=== PATIENT | female | born 1935 | race Caucasian/White ===

== ENCOUNTER 2019-01-29 13:49 | Emergency (ER) | payer MEDICARE, SELFPAY ==
[2019-01-29 13:51] VITALS: BP 163/89; PULSE 43; RESP 17; TEMP 36.4; O2SAT 99; BMI 18.1
--- NOTE | 2019-01-29 14:05 | CT_ITS ---
STUDY: CT BRAIN WITHOUT CONTRAST REASON FOR EXAM: Female, 83 years old. Intermittent left earache. RADIATION DOSAGE (If Supplied By Facility): CTDIvol = ( 60.81 ) mGy, DLP = ( 998.67 ) mGycm TECHNIQUE: Transaxial CT imaging of the brain was performed without administration of intravenous contrast material. Individualized dose optimization techniques were used for this CT. COMPARISON: No relevant priors. FINDINGS: Normal soft tissue structures. Normal calvarium. There is mild cerebral atrophy with widening of the extra-axial spaces and ventricular dilatation. There are areas of decreased attenuation within the white matter tracts of the supratentorial brain, consistent with microvascular disease changes. Normal basal ganglia and thalami. Normal brainstem. There is mild cerebellar atrophy. There is no intracranial hemorrhage. There are no findings of an acute ischemic infarction. Atherosclerotic plaques of the cavernous portions of the internal carotid arteries bilaterally. Normal visualized paranasal sinuses. CT/Brain/Head without Contrast IMPRESSION: Chronic involutional changes of the brain. Electronically Signed: Abraham March, at 14:55 EDT , Service support ,
--- NOTE | 2019-01-29 15:10 | ED.VISSUMM ---
- ER Visit Summary Date of Service: 01/29/19 Chief Complaint: Ear pain History of Present Illness: The patient is a 83 F left ear pain for 2 to 3 days. She has had it on and off for about a year. No headache no fever chills no cough congestion. Denies any problems swallowing. There is no facial pain burning sensation or neuropathic pain. Physical Examination: On physical exam she has a normal TM she has some tenderness over the auricle. There is no mastoid tenderness there is no TMJ tenderness there is no facial tenderness she has a normal bite she has a normal posterior oropharynx she has a no C-spine tenderness she has a normal exam. Emergency Department Course and Treatment: CT is unremarkable, I will refer to ENT. Discharge stable condition Impression: [Otalgia] This note was generated with [employer] dictation software. It may contain incorrect words, spelling, and punctuation that were not noted in review of the chart prior to signing ED Disposition - Plan for ED Patient: Disposition: Home or Assisted Living Referrals: Joel Escobedo MD [STAFF PHYSICIAN] - 3-5 Days Additional Instructions: Follow-up with ear nose and throat, your work-up was normal in the ED you had a normal CAT scan.
--- NOTE | 2019-01-29 15:15 | ED.DCSUM_ITS ---
- ER Visit Summary Date of Service: 01/29/19 Chief Complaint: Ear pain History of Present Illness: The patient is a 83 F left ear pain for 2 to 3 days. She has had it on and off for about a year. No headache no fever chills no cough congestion. Denies any problems swallowing. There is no facial pain bur scottie sensation or neuropathic pain. Physical Examination: On physical exam she has a normal TM she has some tenderness over the auricle. There is no mastoid tenderness there is no TMJ tenderness there is no facial tenderness she has a normal bite she has a normal posterior oropharynx she has a no C-spine tenderness she has a normal exam. Emergency Department Course and Treatment: CT is unremarkable, I will refer to ENT. Discharge stable condition Impression: [Otalgia] This note was generated with [employer] dictation software. It may contain incorrect words, spelling, and punctuation that were not noted in review of the chart prior to signing ED Disposition - Plan for ED Patient: Disposition: Home or Assisted Living Referrals: Joel Escobedo MD [STAFF PHYSICIAN] - 3-5 Days Additional Instructions: Follow-up with ear nose and throat, your work-up was normal in the ED you had a normal CAT scan.
[2019-01-29 15:22] VITALS: BP 155/80; PULSE 60; RESP 14; O2SAT 98
== END 2019-01-29 15:23 | disposition home or self-care (01) ==
PROVIDERS: Emergency Provider Emergency Medicine; Family Provider Family Medicine; PCP Family Medicine
DX: H92.02 Otalgia, left ear (principal); K21.9 Gastro-esophageal reflux disease without esophagitis
CPT/HCPCS: 70450; 99282

== ENCOUNTER 2021-09-09 09:33 | Emergency (ER) | payer MEDICARE, SELFPAY ==
[2021-09-09 09:34] VITALS: BP 129/88; PULSE 98; RESP 16; TEMP 36.6; O2SAT 99; BMI 16.5
--- NOTE | 2021-09-09 10:06 | RAD_ITS ---
HISTORY: Injury/Pain. TECHNIQUE: XR Knee 1 or 2 Views. # of images incl. paperwork: 2. COMPARISON: None. FINDINGS: BONES: No acute fracture identified. Chronic fragment at the medial femoral condyle from old avulsion injury. Generalized osteopenia. JOINTS: No dislocation. Degenerative changes with chondrocalcinosis. Mild joint effusion. RAD/Knee 1 or 2 Views IMPRESSION: No acute fracture or dislocation identified. Degenerative changes in the left knee with mild joint effusion. at 1038 Reported and signed by: Fanta Miller MD Electronically Signed: Fanta Miller MD at 10:37 EST Tel , Service support ,
--- NOTE | 2021-09-09 10:06 | RAD_ITS ---
HISTORY: Injury/Pain. TECHNIQUE: XR Tibia/Fibula 2 Views. # of images incl. paperwork: 3. COMPARISON: None. FINDINGS: BONES: No acute fracture identified. Generalized osteopenia. JOINTS: No dislocation. Degenerative changes. RAD/Tibia & Fibula 2 Views IMPRESSION: No acute fracture or dislocation identified in the left leg. at 1039 Reported and signed by: Fanta Miller MD Electronically Signed: Fanta Miller MD at 10:38 EST Tel , Service support ,
--- NOTE | 2021-09-09 10:06 | CT_ITS ---
STUDY: CT BRAIN WITHOUT CONTRAST REASON FOR EXAM: Female, 86 years old. Injury/ Pain RADIATION DOSAGE (If Supplied By Facility): CTDIvol = ( 44.99 ) mGy, DLP = ( 745.49 ) mGycm TECHNIQUE: Transaxial CT imaging of the brain was performed without administration of intravenous contrast material. Individualized dose optimization techniques were used for this CT. COMPARISON: January 29, 2019 FINDINGS: Normal soft tissue structures. Normal calvarium. There is moderate cerebral atrophy with widening of the extra-axial spaces and ventricular dilatation. There are areas of decreased attenuation within the white matter tracts of the supratentorial brain, consistent with microvascular disease changes. Normal basal ganglia and thalami. Normal brainstem. Normal cerebellum. There is no intracranial hemorrhage. There are no findings of an acute ischemic infarction. There is moderate mucosal thickening of the paranasal sinuses. CT/Brain/Head without Contrast IMPRESSION: Chronic involutional changes of the brain. Electronically Signed: Devante Kerr MD at 10:51 EST , Service support ,
--- NOTE | 2021-09-09 10:16 | EDS_ITS ---
HPI HPI - Fall History of Present Illness Chief Complaint: Fall Informant: patient Narrative Narrative: home with her daughter for left knee pain. O 2 days ago patient was walking in her driveway when she tripped and fell. She landed on her left knee and also hit her face.n ,Patient is an 86-year-old male presenting from She denies any loss of consciousness. She is not any blood thinners. She is here because he is having worsening knee pain is having a hard time ambulating. She does feel that she has to drag her leg because it hurts to put weight on it. She has still been able to ambulate her house. She usually does not use any assistive devices. She takes tramadol once a day for her chronic back pain and otherwise takes [id number] Tylenol sparingly. She does not feel like the Tylenol has been helping with her knee pain. She did scrape her nose and upper lip when she fell. She denies loss of conscious. She is unsure last tetanus was. Patient has been having mild intermittent headaches. No other complaints or concerns at this time. Tetanus Immunization: Unknown [facility] Medical History Arthralgia of both lower legs Bilateral leg edema CKD (chronic kidney disease) stage 3, GFR 30-59 ml/min Cognitive and behavioral changes GERD without esophagitis Hyperlipidemia Hypertension L-S radiculopathy Mitral valve disorder RCT (rotator cuff tear) Rosacea TIA (transient ischemic attack) Home Medications acetaminophen [Tylenol] 650 mg PO Q6H PRN 09/09/21 [History Last Taken Unknown] amlodipine 2.5 mg PO DAILY 09/09/21 [History Last Taken Unknown] hydrocodone-acetaminophen 1 tab PO Q6H PRN 3 Days #12 tab 09/09/21 [Rx Last Taken Unknown] metoprolol succinate 50 mg PO BID 09/09/21 [History Last Taken Unknown] simvastatin 10 mg PO QHS 09/09/21 [History Last Taken Unknown] tramadol 50 mg PO DAILY 09/09/21 [History Last Taken Unknown] tretinoin (emollient) 1 applic TOPICAL DAILY 09/09/21 [History Last Taken Unknown] triamterene-hydrochlorothiazid 1 tab PO DAILY 09/09/21 [History Last Taken Unknown] Allergy/AdvReac Type Severity Reaction Status Date / Time amoxicillin [From Augmentin] Allergy Hives Verified 09/09/21 09:35 clavulanic acid Allergy Hives Verified 09/09/21 09:35 [From Augmentin] Penicillins Allergy Hives Verified 09/09/21 09:35 Surgical History History of appendectomy History of hysterectomy Social History Smoking Status: Never smoker ROS ROS ED Constitutional Constitutional ED: Denies chills or fever(s) Eyes Eyes: Denies blurry vision or change in vision ENT ENT ED: Denies ear pain, rhinorrhea or sore throat Cardiovascular Cardiovascular: Denies chest pain Respiratory/Chest Respiratory/Chest: Denies dyspnea Gastrointestinal Gastrointestinal: Denies abdominal pain or vomiting Musculoskeletal Musculoskeletal: Reports other Details: Left knee pain Integumentary Reports Abrasions Neurologic Neurologic: Reports headache(s); Denies paresthesias or weakness Psychiatric Psychiatric: Denies depression EXAM Physical Exam Const Vital Signs: 09/09/21 09:34 09/09/21 13:10 Temperature 98 F Temperature Source Temporal Pulse Rate 98 Respiratory Rate 16 16 Blood Pressure 129/88 H Blood Pressure Mean 101 Pulse Ox 99 Oxygen Delivery Method Room Air Positive well nourished and well developed General Appearance ED: well developed HEENT Reports normocephalic, TM's clear and TM's normal bilaterally HEENT Narrative: No cephalhematoma appreciated. No hemotympanum. No signs of basilar skull fracture. Normal occlusion. No signs of epistaxis or septal hematoma. Patient does have abrasions to her philtrum and nose that appear to be healing. They are covered up with make-up at this time. Tympanic Membrane ED: Yes TM's clear Eyes PERRL and EOMs intact bilaterally Neck full ROM and supple Neck Narrative: No midline tenderness Chest Wall inspection of chest normal Resp normal respiratory effort and clear to auscultation bilaterally Cardio regular rate, regular rhythm and no murmurs Cardio Narrative: 2+ bilateral DP pulses GI non-tender and non-distended Palpation: soft Back/Spine no CVA tenderness Back/Spine Narrative: No midline tenderness Extremity Extremity Narrative: Decreased range of motion of the left knee. Associated effusion appreciated. Patient is able to raise the entire leg off the bed. No tenderness of the fibular head. She resist passive range of motion of the knee secondary to pain. Cannot localize to a single area where the pain is on her knee. No tenderness palpation of the greater trochanter. Normal range of motion of the left hip. Neuro oriented x3, CN's II-XII intact bilaterally, moves all extremities, no focal motor deficits and no sensory deficits noted Sensorium / Orientation: alert Motor Exam: strength 5/5 throughout; Negative for general weakness Psych mental status grossly normal Skin Skin Narrative: Abrasion to the nose and philtrum. Very small abrasion to anterior left knee Rashes: no rashes MDM MDM MDM Narrative Medical decision making narrative: Patient evaluated for difficulty walking associated with left knee pain. She injured it in a fall couple days ago. CT the head did not show any acute process. Tetanus is updated she does have multiple abrasions to her face. X-ray is read as no acute fracture however on m y interpretation I am concerned for tibial plateau fracture. CT is been ordered which shows a comminuted left tibial plateau fracture with moderate joint effusion. Patient is placed in a knee immobilizer and given a walker. She is placed nonweightbearing status. She will follow up with Dr. Mckeon who is agreeable with this plan of care. She is given a short course of [place] for pain control. Patient is amenable to trying to go home and feel safe at home. Her daughter will be there to help her. She is counseled on return precautions. She verbalizes agreement understand this plan. She is encouraged to take a stool softener while taking pain pills to prevent opioid-induced constipation. Radiography Diagnostic Testing: Clinical Impression(s) from Imaging Studies Brain CT 09/09/21 10:06 IMPRESSION: Chronic involutional changes of the brain. Electronically Signed: Devante Kerr MD at 10:51 EST , Service support , Knee X-Ray 09/09/21 10:06 IMPRESSION: No acute fracture or dislocation identified. Degenerative changes in the left knee with mild joint effusion. at 1038 Reported and signed by: Fanta Miller MD Electronically Signed: Fanta Miller MD at 10:37 EST Tel , Service support , ADDENDUM: 09/09/21 1154 IMPRESSION: No acute fracture or dislocation identified. Degenerative changes in the left knee with mild joint effusion. at 1038 Reported and signed by: Fanta Miller MD Electronically Signed: Fanta Miller MD at 11:45 EST Tel , Service support , Tibia/Fibula X-Ray 09/09/21 10:06 IMPRESSION: No acute fracture or dislocation identified in the left leg. at 1039 Reported and signed by: Fanta Miller MD Electronically Signed: Fanta Miller MD at 10:38 EST Tel , Service support , ADDENDUM: 09/09/21 1154 IMPRESSION: No acute fracture or dislocation identified in the left leg. at 1039 Reported and signed by: Fanta Miller MD Electronically Signed: Fanta Miller MD at 11:46 EST Tel , Service support , Lower Extremity CT 09/09/21 10:50 IMPRESSION: Comminuted left tibial plateau fracture as above. Moderate joint effusion. Individualized dose optimization techniques were used for this CT. at 1152 Reported and signed by: Fanta Miller MD Electronically Signed: Fanta Miller MD at 11:51 EST Tel , Service support , Discharge Plan Triage Chief Complaint: Fall ED Provider: Annia Colvin Dx/Rx/DC Orders Clinical Impression: Fracture of tibial plateau, closed, Abrasion of face Instructions: ED Fracture, Lower Extremity, ED Knee Immobilizer Prescriptions: New hydrocodone-acetaminophen 5-325 mg tablet 1 tab PO Q6H PRN (Reason: pain) 3 Days Qty: 12 RF: 0 No Action metoprolol succinate 50 mg Tablet Extended Release 24 Hr 50 mg PO BID RF: 0 tretinoin (emollient) 0.02 % Cream 1 applic TOPICAL DAILY RF: 0 simvastatin 10 mg Tablet 10 mg PO QHS RF: 0 amlodipine 2.5 mg Tablet 2.5 mg PO DAILY RF: 0 tramadol 50 mg Tablet 50 mg PO DAILY RF: 0 triamterene-hydrochlorothiazid 37.5-25 mg Tablet 1 tab PO DAILY RF: 0 acetaminophen [Tylenol] 325 mg Capsule 650 mg PO Q6H PRN (Reason: Pain) RF: 0 Primary Care Provider: Melvin Vaughn Referrals: Melvin Vaughn MD [Primary Care Provider] - Valeriy Mckeon DO [STAFF PHYSICIAN] - 3-5 Days Activity Restrictions/Additional Instructions: Use the walker and the knee immobilizer. Do not put any weight on your leg until cleared by the orthopedist. Call the orthopedic office on Saturday to arrange close follow-up. Disposition Disposition: Home, Self Care Discharge Date/Time: 09/09/21 13:19
[2021-09-09] MEDS: Diphth,Pertuss(Acell),Tet Vac 0.5 ML Vial IM (10:33)
[2021-09-09] MEDS: Acetaminophen 500 MG Tablet PO (10:33)
--- NOTE | 2021-09-09 10:50 | CT_ITS ---
HISTORY: left knee pain-concern for tibial plateau fracture. TECHNIQUE: Routine bone CT protocol was performed of the left knee. 2-D reformats were performed by the technologist. A radiation dose optimization technique was used for this scan. # of images incl. paperwork: 317. IV Contrast dosage and agent: None. COMPARISON: XR same day. FINDINGS: OSSEOUS STRUCTURES: Comminuted and nondisplaced tibial plateau fracture with a nondepressed component at the lateral tibial plateau, extension along the base of the tibial spines, and extension to the medial tibial plateau. Chronic linear sclerosis in the distal femoral diaphysis. Generalized osteopenia. Chronic ossification at the origin of the medial collateral ligament from old avulsion injury. Chronic ossification at the medial patella. JOINTS: Degenerative changes of the knee. Mild medial tilt of the patella. No dislocation. Moderate joint effusion. SOFT TISSUES: Surrounding soft tissue edema. CT/Extremity Lower without Contra IMPRESSION: Comminuted left tibial plateau fracture as above. Moderate joint effusion. Individualized dose optimization techniques were used for this CT. at 1152 Reported and signed by: Fanta Miller MD Electronically Signed: Fanta Miller MD at 11:51 EST Tel , Service support ,
[2021-09-09 13:10] VITALS: RESP 16
[2021-09-09] MEDS: HYDROcodone Bitartrate/Apap 5/325 Tablet PO (13:11)
== END 2021-09-09 13:19 | disposition home or self-care (01) ==
PROVIDERS: Emergency Provider Emergency Medicine; PCP Family Medicine
DX: S82.142A Displaced bicondylar fracture of left tibia, initial encounter for closed fracture (principal); S80.212A Abrasion, left knee, initial encounter; S00.31XA Abrasion of nose, initial encounter; Z23 Encounter for immunization; W01.10XA Fall on same level from slipping, tripping and stumbling with subsequent striking against unspecified object, initial encounter; Y93.9 Activity, unspecified; Y92.9 Unspecified place or not applicable; Y99.9 Unspecified external cause status; I12.9 Hypertensive chronic kidney disease with stage 1 through stage 4 chronic kidney disease, or unspecified chronic kidney disease; N18.30 Chronic kidney disease, stage 3 unspecified; E78.5 Hyperlipidemia, unspecified; K21.9 Gastro-esophageal reflux disease without esophagitis; M54.9 Dorsalgia, unspecified; G89.29 Other chronic pain; Z79.899 Other long term (current) drug therapy; Z86.73 Personal history of transient ischemic attack (TIA), and cerebral infarction without residual deficits
CPT/HCPCS: 70450; 73560; 73590; 73700; 90715; 99283

== ENCOUNTER 2021-10-12 09:38 | Emergency (ER) | payer MEDICARE, SELFPAY ==
[2021-10-12 09:39] VITALS: BP 124/100; PULSE 56; RESP 16; TEMP 37.1; O2SAT 98; BMI 18.5
--- NOTE | 2021-10-12 09:41 | EKG12_ITS ---
Test Reason : SUICIDAL Blood Pressure : / mmHG Vent. Rate : 054 BPM Atrial Rate : 054 BPM P-R Int : 168 ms QRS Dur : 092 ms QT Int : 454 ms P-R-T Axes : 061 003 046 degrees QTc Int : 430 ms Sinus bradycardia with Premature atrial complexes Septal infarct , age undetermined Abnormal ECG Confirmed by JUSTIN BOLANOS, LEEANN ([id number]), clinical editor JOSY RIOS ([id number]) on 10/16/2021 10:57:00 AM Referred By: ARIE Confirmed By:LEEANN ANDERSON MD
--- NOTE | 2021-10-12 09:43 | NURSING ---
NO OLD EKGS
[2021-10-12 10:14] LABS: Mucous, Urine 0 SEEN /hpf (<or=2+)
[2021-10-12 10:14] LABS: Absolute Lymphocyte Count 1.34 X10^3/uL (0.83-4.51); Absolute Neutrophil Count 5.3 X10^3/uL (2.0-7.7); Basophil# 0.07 X10^3/uL; Eosinophil# 0.16 X10^3/uL; Eosinophils% 2.2 % (0-5); Hematocrit 40.1 % (37-47); Lymphocyte # 1.34 X10^3/ul (0.83-4.51); Lymphocyte % 18.4 % (19-41); Mean Corp Hgb Conc 32.4 g/dL (32-36); Mean Corpuscular Hgb 31.6 pg (27.0-32.0); Mean Corpuscular Volume 97.6 fL (81-99); Mean Platelet Vol. 9.5 fl (6.2-12.0); Monocyte# 0.42 X10^3/uL; Monocyte% 5.8 % (0-10); NRBC Flagged by Analyzer 0 % (0-5); Neutrophil # 5.26 X10^3/uL (2.7-7.7); Neutrophil % 72.1 % (47-70); Platelet Count 263 K/mm3 (150-450); RBC Distribution Width CV 13.2 % (11.6-14.6); RBC Distribution Width SD 47.8 fl (35.1-43.9); Red Blood Count 4.11 M/mm3 (4.2-5.4); White Blood Count 7.3 K/mm3 (4.4-11.0)
[2021-10-12 10:19] LABS: Color, Urine Yellow (Yellow); Glucose, Dipstick Normal (Normal); Ketone-Dipstick 5 mg/dl (Negative); Leukocyte Esterase-Dipstick 25 /ul (Negative); Nitrite-Dipstick Negative (Negative); Occult Blood-Urine 250 /ul (Negative); Protein-Dipstick 100 mg/dl (Negative); Specific Gravity, Urine 1.015 (1.002-1.030); Urine Bilirubin Dipstick Negative (Negative); Urine Clarity Sl. Cloudy (Clear); Urine Urobilinogen Normal (Normal)
[2021-10-12 10:23] LABS: Anion Gap 5 (5-15); BUN 21 mg/dL (7-18); BUN/Creat Ratio 16.7 RATIO (10-20); Calcium,Total 9.7 mg/dL (8.5-10.1); Chloride 105 mmol/L (98-107); Creatinine, Serum 1.26 mg/dL (0.55-1.02); EST Glomerular Filtration Rate 43 mL/min (>60); Est Glom Filt Rate - Afr Amer 52 mL/min (>60); Estimated Creatinine Clearance 22.51 ml/min; Glucose 91 mg/dL (74-106); Potassium 4.2 mmol/L (3.5-5.1); Sodium Level 138 mmol/L (136-145)
[2021-10-12 10:41] LABS: Bacteria RARE /hpf (None Seen); Red Blood Cells-Urine 0-5 SEEN /hpf (0-5); Squamous Epithelial Cells - UA 0-5 SEEN /hpf (5-10); White Blood Cells 0-5 SEEN /hpf (0-5)
[2021-10-12 10:43] LABS: Amphetamine Urine VISTA NEGATIVE (<1000 ng/mL); Barbiturate Urine VISTA NEGATIVE (< 200 ng/mL); Benzodiazepine Urine VISTA NEGATIVE (< 200 ng/mL); Cocaine Urine VISTA NEGATIVE (< 300 ng/mL); Ecstacy Urine VISTA NEGATIVE (< 500 ng/mL); Methadone Urine VISTA NEGATIVE (< 300 ng/mL); PCP Urine VISTA NEGATIVE (< 25 ng/mL); THC Urine VISTA NEGATIVE (< 50 ng/mL); Vista UDS pH Range 6
--- NOTE | 2021-10-12 10:43 | EX.ED.VIS.PS ---
HPI HPI - Psych History of Present Illness Chief Complaint: Suicidal Informant: patient and EMS Onset/Context/Timing Onset: Today Timing: Continuous Worsened by: Situational factors Associated Symptoms Associated Symptoms - Psych: Positive for Depressed and Suicidal Thoughts Specific plan (suicidal thought): Overdose on medications Narrative Narrative: Patient presents with suicidal ideations that became worse today. Patient states she took some tramadol in an effort to harm herself. Patient states she took these approximately 1 to 2 hours prior to arrival. EMS reports that there were approximately 15 tablets taken. Patient is unsure how many she took. EMS reports that the patient has been having some problems with her daughter at home. EMS reports that the patient had broken her leg in the past and her daughter moved in to help care for her. The daughter thinks that the patient can start caring for herself again and patient wants the daughter to continue to live with her so she threatened to harm herself. [facility] Medical History Arthralgia of both lower legs Bilateral leg edema CKD (chronic kidney disease) stage 3, GFR 30-59 ml/min Cognitive and behavioral changes GERD without esophagitis Hyperlipidemia Hypertension L-S radiculopathy Mitral valve disorder RCT (rotator cuff tear) Rosacea TIA (transient ischemic attack) Home Medications amlodipine 2.5 mg PO DAILY 09/09/21 [History Last Taken Unknown] metoprolol succinate 50 mg PO DAILY 09/09/21 [History Last Taken Unknown] tramadol 50 mg PO DAILY 09/09/21 [History Last Taken Unknown] triamterene-hydrochlorothiazid 1 tab PO DAILY 09/09/21 [History Last Taken Unknown] potassium chloride 10 meq PO DAILY 10/12/21 [History Last Taken Unknown] Allergy/AdvReac Type Severity Reaction Status Date / Time amoxicillin [From Augmentin] Allergy Hives Verified 10/12/21 09:43 clavulanic acid Allergy Hives Verified 10/12/21 09:43 [From Augmentin] Penicillins Allergy Hives Verified 10/12/21 09:43 Surgical History History of appendectomy History of hysterectomy Social History Smoking Status: Never smoker ROS ROS ED Constitutional Constitutional ED: Denies chills or fever(s) Eyes Eyes: Denies blurry vision or change in vision ENT ENT ED: Denies rhinorrhea or sore throat Cardiovascular Cardiovascular: Denies chest pain or palpitations Respiratory/Chest Respiratory/Chest: Denies cough or dyspnea Gastrointestinal Gastrointestinal: Reports nausea; Denies vomiting Genitourinary Genitourinary ED: Denies dysuria or hematuria Musculoskeletal Musculoskeletal: Denies back pain or neck pain Integumentary Denies abscess or rash Neurologic Neurologic: Denies headache(s) or weakness Psychiatric Psychiatric: Reports depression and suicidal thoughts Allergic/Immunologic Allergic/Immunologic ED: Denies mouth swelling or urticaria EXAM Physical Exam Const Vital Signs: 10/12/21 09:39 10/12/21 11:23 10/12/21 13:03 Temperature 98.7 F Temperature Source Temporal Pulse Rate 56 L 58 L 49 L Respiratory Rate 16 15 17 Blood Pressure 124/100 H 125/110 H 133/69 H Blood Pressure Mean 108 115 90 Pulse Ox 98 94 95 Oxygen Delivery Method Room Air Room Air Room Air 10/12/21 14:48 10/12/21 15:00 Temperature Temperature Source Pulse Rate 52 L 47 L Respiratory Rate 16 17 Blood Pressure 136/73 H 139/74 H Blood Pressure Mean 94 95 Pulse Ox 99 98 Oxygen Delivery Method Room Air Positive well nourished and well developed General Appearance ED: well developed HEENT Reports moist mucous membranes Neck supple and no JVD Resp normal respiratory effort and clear to auscultation bilaterally Cardio regular rate, regular rhythm and no murmurs GI normal to inspection, nondistended, normoactive bowel sounds and non-tender Palpation: soft Extremity normal to inspection General Extremety ED: Negative for edema or tenderness General Extremity: Negative for edema Neuro oriented x3, CN's II-XII intact bilaterally and no sensory deficits noted Sensorium / Orientation: alert Motor Exam: strength 5/5 throughout Psych mental status grossly normal Appearance: grossly normal Attitude: calm Activity / Motor Behavior: appropriate eye contact Speech: normal speech Mood & Affect: flat affect Memory / Cognition: memory grossly intact Skin no rashes or lesions noted MDM MDM MDM Narrative Medical decision making narrative: EKG was obtained. On my interpretation, it showed a sinus bradycardia with a rate of 54 with occasional PACs. LA interval, QRS interval, and QTc intervals were all normal. Hickman was normal. There are no acute ST or T wave changes. CBC and basic metabolic profile were obtained and were essentially within normal limits. BUN was 21 and creatinine is 1.26. Electrolytes were normal. Anion gap was normal. Salicylate level was less than 1.7, acetaminophen level is less than 2.0. Serum alcohol level was normal. Urinalysis does not show any evidence of urinary tract infection. Urine tox screen was negative. COVID-19 rapid antigen was obtained and was negative. diversified crops i farmworker is also in to evaluate the patient. She believes that the patient will require placement because of the suicidal attempt. She will attempt to place the patient in a psychiatric facility. Patient is medically cleared for psychiatric placement. Patient was accepted to [facility] to the service of Dr. Camejo. Patient will be transferred there. Lab Data Attestation: I reviewed the patient's lab results. Labs: Laboratory Results - last 24 hr 10/12/21 10/12/21 10/12/21 09:50 09:50 09:50 WBC 7.3 RBC 4.11 L Hgb 13.0 Hct 40.1 MCV 97.6 MCH 31.6 MCHC 32.4 RDW Std Deviation 47.8 H RDW Coeff of Alanna 13.2 Plt Count 263 MPV 9.5 Immature Gran % (Auto) 0.500 Neut % (Auto) 72.1 H Lymph % (Auto) 18.4 L [place] % (Auto) 5.8 Eos % (Auto) 2.2 Baso % (Auto) 1.0 Absolute Neuts (auto) 5.3 Absolute Lymphs (auto) 1.34 Nucleated RBC % 0 Sodium 138 Potassium 4.2 Chloride 105 Carbon Dioxide 28.0 Anion Gap 5 BUN 21 H Creatinine 1.26 H Estim Creat Clear Calc 22.51 Est GFR (MDRD) Af Amer 52 L Est GFR (MDRD) Non-Af 43 L BUN/Creatinine Ratio 16.7 Glucose 91 Calcium 9.7 Urine Color Urine Clarity Urine pH Ur Specific [place] Urine Protein Urine Glucose (UA) Urine Ketones Urine Occult Blood Urine Nitrite Urine Bilirubin Urine Urobilinogen Ur Leukocyte Esterase Urine RBC Urine WBC Ur Squamous Epith Cells Urine Bacteria Urine Mucus Salicylates < 1.7 L Urine Opiates Screen Urine Methadone Screen Acetaminophen < 2.0 L Ur Barbiturates Screen Ur Phencyclidine Scrn Ur Amphetamines Screen U Methamphetamin-MDMA U Benzodiazepines Scrn Urine Cocaine Screen U Cannabinoids Screen Ur Drug Screen Comment Ethyl Alcohol < 3.0 10/12/21 10/12/21 10:05 10:05 WBC RBC Hgb Hct MCV MCH MCHC RDW Std Deviation RDW Coeff of Alanna Plt Count MPV Immature Gran % (Auto) Neut % (Auto) Lymph % (Auto) [place] % (Auto) Eos % (Auto) Baso % (Auto) Absolute Neuts (auto) Absolute Lymphs (auto) Nucleated RBC % Sodium Potassium Chloride Carbon Dioxide Anion Gap BUN Creatinine Estim Creat Clear Calc Est GFR (MDRD) Af Amer Est GFR (MDRD) Non-Af BUN/Creatinine Ratio Glucose Calcium Urine Color Yellow Urine Clarity Sl. Cloudy Urine pH 6.0 Ur Specific [place] 1.015 Urine Protein 100 H Urine Glucose (UA) Normal Urine Ketones 5 H Urine Occult Blood 250 H Urine Nitrite Negative Urine Bilirubin Negative Urine Urobilinogen Normal Ur Leukocyte Esterase 25 H Urine RBC 0-5 SEEN Urine WBC 0-5 SEEN Ur Squamous Epith Cells 0-5 SEEN Urine Bacteria RARE Urine Mucus 0 SEEN Salicylates Urine Opiates Screen NEGATIVE Urine Methadone Screen NEGATIVE Acetaminophen Ur Barbiturates Screen NEGATIVE Ur Phencyclidine Scrn NEGATIVE Ur Amphetamines Screen NEGATIVE U Methamphetamin-MDMA NEGATIVE U Benzodiazepines Scrn NEGATIVE Urine Cocaine Screen NEGATIVE U Cannabinoids Screen NEGATIVE Ur Drug Screen Comment Ethyl Alcohol EKG Initial EKG: Attestation: I personally reviewed and interpreted this EKG as follows: Interpretation: No Acute Injury Pattern and Sinus Bradycardia (54 with occasional PACs) Prior EKG tracings: not available for review Discharge Plan Triage Chief Complaint: Suicidal ED Provider: Nando Jacob Dx/Rx/DC Orders Clinical Impression: Suicide attempt Prescriptions: No Action metoprolol succinate 50 mg Tablet Extended Release 24 Hr 50 mg PO DAILY RF: 0 amlodipine 2.5 mg Tablet 2.5 mg PO DAILY RF: 0 tramadol 50 mg Tablet 50 mg PO DAILY RF: 0 triamterene-hydrochlorothiazid 37.5-25 mg Tablet 1 tab PO DAILY RF: 0 potassium chloride 10 mEq tablet extended release 10 meq PO DAILY RF: 0 Primary Care Provider: Melvin Vaughn Referrals: Melvin Vaughn MD [Primary Care Provider] - Disposition Disposition: Psychiatric Hospital or Unit Discharge Location: [facility]
[2021-10-12 10:47] LABS: Acetaminophen (Tylenol) Level < 2.0 ug/mL (10.0-30.0); Alcohol, Blood (Medical)-Serum < 3.0 mg/dL; Salicylate < 1.7 mg/dL (2.8-20.0)
[2021-10-12 11:23] VITALS: BP 125/110; PULSE 58; RESP 15; O2SAT 94
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
[2021-10-12 13:03] VITALS: BP 133/69; PULSE 49; RESP 17; O2SAT 95
--- NOTE | 2021-10-12 13:07 | CM.ED ---
JUANITO Note JUANITO faxed referrals to [place], [facility], [facility] and [facility] for review. Fide from [facility] called for clarification. Fdie said that she has left message for patient's daughter regarding dementia diagnosis. JUANITO faxed clarification paperwork to Fide at [facility] including lisbet lanier. and RN updated. Ольга DRIVER
--- NOTE | 2021-10-12 14:47 | CM.ED ---
Juanito Note JUANITO called Fide at [facility]. Fide said that she talked to patient's daughter, Richard for 40 minutes and did not get much information out about patient and her ADL's. JUANITO will call patient's daughter and try to determine what patient's functioning level is. JUANITO called Richard said that she has been staying with her mom for 34 days. Richard said that patient does not have PT/OT or speech. Richard said that she does exercises with the patient. JUANITO asked if patient gets dressed and Richard said she doesn't get dressed and then said that patient wears PJ but how she (Richard) threw away patient's pj's , towels and wash clothes. Richard does the laundry and makes sure that patient has something to eat. Richard said that patient's doctor told her that patient needs to have her daughter, Richard, stay with her or go to SNF. Richard said that at times patient is wearing dirty clothes but then referenced her mom changing clothes and stated somehow she manages to get dressed.. Richard said that patient uses the bathroom on her own. Richard said that patient does not shower but she washes her mother's hair. Richard said that she makes sure that patient eats 3 meals a day. JUANITO explained that we need to know her ADL's level in order to place her appropriately in an unit at [facility]. Richard then talked about how her mom and her would go out to eat nightly at [facility], prior to [facility] and her mom would make statements about gays and black people. Richard said my mom hates everybody. RN had also called patient's daughter for medication and review ADL's and per Amparo RN daughter was unable to verbalize what ADL's patient is doing. JUANITO updated Fide at [facility]. She asked that RN walk patient. RN walked patient with walker and she did fine. Per RN the sitter noted patient ate and drank independently for lunch. JUANITO updated Fide about patient's walking and drinking and eating. JUANITO asked if the MD note was fine that patient was medically clear and she said that the provider was fine with the MD note. JUANITO received call from [facility]. Their MD is recommending [facility] for patient. Ольга DRVIER
[2021-10-12 14:48] VITALS: BP 136/73; PULSE 52; RESP 16; O2SAT 99
[2021-10-12 15:00] VITALS: BP 139/74; PULSE 47; RESP 17; O2SAT 98
--- NOTE | 2021-10-12 15:49 | NURSING ---
CALLED [facility], ETA IS 30 MIN
--- NOTE | 2021-10-12 15:53 | CM.ED ---
JUANITO Note JUANITO received call from Fide at [facility]. Accepting MD is Dr. Camejo and patient is going to [facility]. RN to call report to Intake at [facility]. Fide said that they need original pink slip but it can be on white form. JUANITO provided number for intake [phone] to Amaury RN for report. JUANITO updated patient. JUANITO updated patient's daughter. JUANITO also provided patient's daughter with information about [facility] and their contact number for recommendations regarding placement. JUANITO encouraged Richard, patient's daughter, to speak to the staff at [facility] about their recommendations regarding patient. Thelma called for transport and transport will be here in 30 minutes. JUANITO called Richard back with patient's discharge time from [facility]. Richard appreciative of support by staff. Plan: [facility] Psych[facility] Ольга DRIVER
[2021-10-12 16:00] VITALS: PULSE 54; RESP 16; O2SAT 97
== END 2021-10-12 19:40 ==
PROVIDERS: Emergency Provider Emergency Medicine; PCP Family Medicine; Visit Provider Emergency Medicine
DX: T40.422A Poisoning by tramadol, intentional self-harm, initial encounter (principal); N18.30 Chronic kidney disease, stage 3 unspecified; I12.9 Hypertensive chronic kidney disease with stage 1 through stage 4 chronic kidney disease, or unspecified chronic kidney disease; E78.5 Hyperlipidemia, unspecified; Z79.899 Other long term (current) drug therapy; Z86.73 Personal history of transient ischemic attack (TIA), and cerebral infarction without residual deficits
CPT/HCPCS: 80048; 80307; 80329; 81001; 82077; 85025; 87426; 93005; 99285; A4216; G0480

== ENCOUNTER 2021-12-13 08:16 | Outpatient (CLI) | payer MEDICARE, SELFPAY ==
--- NOTE | 2021-12-13 08:30 | PET_ITS ---
EXAMINATION: FDG PET/CT INDICATIONS: An 86-year-old female with history of pulmonary nodularity. COMPARISON EXAMINATION: None available INDEX LESION SIZE SUV INTERPRETATION Right upper lung-right upper lobe 15.3-mm (frame 192) 7.6 Fulfills quantitative criteria for viable neoplasm, histopathologic analysis recommended Right upper lung-right upper lobe 6.5-mm (frame 194) 1.5 Quantitative criteria for viable neoplasm are not fulfilled NON-INDEX LESION SIZE SUV INTERPRETATION Bilateral hemithorax pleural effusion 1.3 (max) Quantitative criteria for viable neoplasm are not fulfilled Left anterolateral second rib 2.1 (max) Most consistent with trauma-fracture Right posterior hemipelvis subcutaneous tissues 4.0 (max) Most consistent with inflammatory process-cellulitis TECHNIQUE: Following the intravenous administration of 13.9 mCi of F-18 deoxyglucose via the left antecubital fossa, multiplanar image acquisitions of the neck, chest, abdomen and pelvis to level of mid thigh, obtained at one hour post radiopharmaceutical administration contemporaneously interpreted with the current CT of the neck, chest, abdomen and pelvis to level of mid thigh, dated 12/13/21 via coregistration reveal: SERUM GLUCOSE LEVEL: 119 mg/dl. HEIGHT: 60 inches. WEIGHT: 98 lbs. FINDINGS: 1. Focal increased GLUCOSE metabolism is manifest in the right mid lung-right upper lobe generating a calculated maximal standard uptake value of 7.6. The maximal axial diameter of the corresponding parenchymal density on review of CT of the chest dated 12/13/21 is 15.3-mm (transverse). 2. Subtle increased radiopharmaceutical is manifest in the right mid lateral lung-right upper lobe adjacent to the aforementioned hypermetabolic parenchymal density. The calculated maximal standard uptake value is 1.5. The maximal axial diameter of the corresponding non-calcified density on review of CT of the chest dated 12/13/21 is 6.5-mm (AP). 4. Focal increased tracer uptake is defined in the right posterior hemipelvis localized to the subcutaneous soft tissues, generating a calculated maximal standard uptake value of 4.0. 5. Normal physiologic distribution of the radiopharmaceutical is apparent in the hepatic (2.3) and splenic parenchyma, both renal units, bladder and visualized intestinal tract. The visualized portion of the cerebral cortical-subcortical structures demonstrate symmetric and preserved glucose metabolism. Diffuse radiopharmaceutical concentration is noted in all four quadrants of the abdomen and pelvis. Prominent radiopharmaceutical concentration is identified in the left ventricular myocardium commensurate with the fed state. Mild increased tracer concentration is observed in the left anterior chest wall associated with the second rib manifesting a calculated maximal standard uptake value of 2.1. Uptake appears to correspond to visualized trauma-fracture on review of CT of the chest dated 12/13/21. Facilitated uptake is observed in the fourth-fifth lumbar vertebrae associated with the facet joints to the left and right of the midline most consistent with degenerative arthritis. Pertinent CT findings are as follows: CHEST: Bilateral hemithorax pleural effusions demonstrate no evidence of quantitatively significant increased FDG uptake. The calculated maximal standard uptake value is 1.3. Quantitative criteria for viable neoplasm are not fulfilled. Atherosclerotic calcification is encountered in the thoracic aorta. The maximal axial diameter of the ascending thoracic aorta is 44.2-mm (transverse). Coronary arterial calcification is observed. Scattered mediastinal soft tissue reveals no evidence of increased tracer uptake. ABDOMEN AND PELVIS: There is atherosclerotic calcification defined in the abdominal aorta without evidence of dilatation-aneurysm formation. Abdominal-pelvic arterial calcification is observed. Calcified granuloma formation is noted within the hepatic and splenic parenchyma. Right and left inguinal soft tissue densities with fatty hilus reveal no evidence of increased tracer uptake. Surgical clip placement is manifest in the bilateral inguinal regions. SKELETAL: Degenerative changes are noted in the cervical, thoracic and lumbar spine without evidence of increased radiopharmaceutical concentration. PET/PET/CT Tumor Base -Thigh Init IMPRESSION: 1. Increased FDG concentration observed in the right upper lung-right upper lobe fulfills quantitative criteria for viable neoplasm. Histopathologic analysis is recommended. (Buchanan et al, Annals of Internal Medicine, 138:724, 2003). 2. Enhanced tracer uptake observed in the right upper lung-right upper lobe in a second nodular presentation does not fulfill quantitative criteria for malignant transformation. 3. Facilitated labeled GLUCOSE encountered in the bilateral hemithorax corresponding to pleural effusion does not fulfill quantitative criteria for viable pleural neoplasia. (Rachel, et al, Chest 122:1918, 2002). 4. The increased tracer uptake noted in the left anterolateral second rib is most consistent with activated leukocytes associated with trauma-fracture. (Sumi et al, Osteoporosis International 13:755, 2002). 5. Accentuated activity defined in the right posterior hemipelvis localized to the subcutaneous, cutaneous tissues likely represents activated leukocytes associated with an inflammatory process-cellulitis. Clinical examination is recommended. Electronic Signature Jung Packer D.O. Accurate Quantification of SUVs for this report are calculated using the exclusive Check Technology. (U.S. Patent No. 10, [id number]). Standardization and correction of the FDG SUV metric via ACCUQUAN technology allow for vendor non-specific objective quantitative examination comparison and optimization of the sensitivity and specificity of the FDG PET-CT examination. Electronically Signed: Jung Packer DO at 22:14 EDT ,
== END 2021-12-13 23:59 | disposition home or self-care (01) ==
PROVIDERS: PCP Internal Medicine; Referring Provider Internal Medicine; Visit Provider Internal Medicine
DX: R91.8 Other nonspecific abnormal finding of lung field (principal)
CPT/HCPCS: 78815; A9595

== ENCOUNTER 2022-01-12 09:16 | Emergency (ER) | payer MEDICARE, SELFPAY ==
[2022-01-12] VITALS (11 sets, daily range): BP systolic 130–184; BP diastolic 58–102; PULSE 51–66; RESP 16–27; TEMP 36.8; O2SAT 94–97; BMI 16.9
--- NOTE | 2022-01-12 09:16 | RAD_ITS ---
STUDY: X-RAY CHEST REASON FOR EXAM: Female, 86 years old. Neuro deficit, acute, stroke suspected TECHNIQUE: Single AP portable view of the chest. COMPARISON: None. FINDINGS: EKG electrodes are seen. Focal left lower lobe infiltrate and small left pleural effusion. There is a 1.2 cm x 1 cm nodule in the right mid lung. Normal size heart. Normal mediastinum and andrea. Normal visualized pulmonary arteries. There is atherosclerotic calcification of the aortic arch with tortuosity. There are diffuse degenerative changes of the visualized thoracic spine. There is degenerative osteoarthritis of the bilateral shoulders. There is no demonstrated abnormality of the visualized soft tissue structures of the upper abdomen. RAD/Chest 1 View IMPRESSION: Left lower lobe infiltrate and small left pleural effusion. 1.2 cm x 1 cm nodule in the right mid lung. Electronically Signed: Abraham March MD at 10:20 EDT ,
--- NOTE | 2022-01-12 09:16 | EKG12_ITS ---
Test Reason : STROKE Blood Pressure : / mmHG Vent. Rate : 051 BPM Atrial Rate : 051 BPM P-R Int : 170 ms QRS Dur : 078 ms QT Int : 482 ms P-R-T Axes : 064 -24 008 degrees QTc Int : 444 ms Sinus bradycardia Otherwise normal ECG Confirmed by JUSTIN BOLANOS, LEEANN ([id number]), online editor JOSY RIOS ([id number]) on 01/15/2022 1:29:59 PM Referred By: BB Confirmed By:LEEANN ANDERSON MD
--- NOTE | 2022-01-12 09:16 | CT_ITS ---
STUDY: CT HEAD STROKE PROTOCOL W/O CONTRAST INJECTION REASON FOR EXAM: Female, 86 years old. Neuro deficit, acute, stroke suspected RADIATION DOSAGE (If Supplied By Facility): CTDIvol = ( 44.99 ) mGy, DLP = ( 745.49 ) mGycm TECHNIQUE: Transaxial CT imaging of the brain was performed without administration of intravenous contrast material. Individualized dose optimization techniques were used for this CT. COMPARISON: Comparison is made with prior study dated 09/09/2021. FINDINGS: Normal soft tissue structures. Normal calvarium. There is mild cerebral atrophy with widening of the extra-axial spaces and ventricular dilatation. There are areas of decreased attenuation within the white matter tracts of the supratentorial brain, consistent with microvascular disease changes. There is a 1.6 cm x 1 cm acute hematoma in the left thalamus with surrounding edema and a mild mass effect. Normal brainstem. Normal cerebellum. There is no intracranial hemorrhage. There are no findings of an acute ischemic infarction. Normal visualized paranasal sinuses. CT/STROKE Brain/Head without Cont IMPRESSION: Acute hematoma in the left thalamus with surrounding edema and mild mass effect. N.B. : The above Results were Read Back by Abraham March MD to Devante Zelaya and understanding confirmed on 01/12/2022 09:32:07 (ET). Electronically Signed: Abraham March MD at 9:33 EDT ,
--- NOTE | 2022-01-12 09:17 | EDS_ITS ---
HPI History of Present Illness Chief Complaint: Neuro S/Sx Informant: patient, family and EMS Onset/Context/Timing Onset: Today (about 829) Context: Sudden Onset Timing: Continuous Quality and Location: Positive for Slurred Speech and Expressive Aphasia Current Severity: Moderate Maximum Severity: Moderate Associated Symptoms Associated Symptoms: Negative for Headache, Nausea, Vomiting and Chest Pain Narrative Narrative: Daughter brought patient home from [facility] about 4 weeks ago, she was there after breaking her hip in September. This morning she got up and she was fine, at baseline. However around 829, she started talking funny with significant slurred speech and was dribbling cereal milk out of her mouth, and not acting right. This is very unusual for her, she usually has very clear speech. She is on aspirin daily. She was on Lovenox injections since September, but just before leaving the [facility] at the beginning of December the Lovenox was discontinued. No recent falls or injuries to the head since she has been home. 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 Proteinuria RCT (rotator cuff tear) Rosacea TIA (transient ischemic attack) Transient cerebral ischemia Home Medications cholecalciferol (vitamin D3) 125 mcg (5,000 unit) capsule 125 mcg PO DAILY 01/01/22 [History Last Taken Unknown] citalopram 10 mg tablet 10 mg PO DAILY 01/01/22 [History Last Taken Unknown] metoprolol succinate 25 mg tablet,extended release 24 hr 12.5 mg PO BID tab 01/01/22 [History Last Taken Unknown] simvastatin 10 mg tablet 10 mg PO QHS 01/01/22 [History Last Taken Unknown] trazodone 50 mg tablet 25 mg PO QHS tab 01/01/22 [History Last Taken Unknown] aspirin 325 mg tablet 325 mg PO DAILY 01/02/22 [History Last Taken Unknown] Allergy/AdvReac Type Severity Reaction Status Date / Time amoxicillin [From Augmentin] Allergy Hives Verified 01/12/22 09:36 clavulanic acid Allergy Hives Verified 01/12/22 09:36 [From Augmentin] Penicillins Allergy Hives Verified 01/12/22 09:36 Surgical History History of appendectomy History of hysterectomy Social History Smoking Status: Never smoker ROS ROS ED Constitutional Constitutional ED: Denies chills or fever(s) Eyes Eyes: Denies change in vision or diplopia ENT ENT ED: Denies rhinorrhea or sore throat Cardiovascular Cardiovascular: Denies chest pain or palpitations Respiratory/Chest Respiratory/Chest: Denies cough or dyspnea Gastrointestinal Gastrointestinal: Denies abdominal pain, diarrhea, nausea or vomiting Genitourinary Genitourinary ED: Denies dysuria or hematuria Musculoskeletal Musculoskeletal: Denies back pain or neck pain Integumentary Denies abscess or rash Neurologic Neurologic: Reports as per HPI and abnormal speech; Denies headache(s), paresthesias or weakness Psychiatric Psychiatric: Denies anxiety or suicidal thoughts EXAM Physical Exam Const Vital Signs: 01/12/22 09:16 01/12/22 09:22 01/12/22 09:32 Temperature 98.2 F Temperature Source Temporal Pulse Rate 54 L 54 L 52 L Respiratory Rate 20 H 20 H 25 H Blood Pressure 184/102 H 184/102 H 169/97 H Blood Pressure Mean 129 129 121 Pulse Ox 96 Oxygen Delivery Method Room Air 01/12/22 09:37 01/12/22 09:45 01/12/22 09:46 Temperature Temperature Source Pulse Rate 51 L 52 L 53 L Respiratory Rate 23 H 22 H 24 H Blood Pressure 169/97 H 154/77 H 154/77 H Blood Pressure Mean 121 102 102 Pulse Ox 95 96 95 Oxygen Delivery Method Room Air Room Air 01/12/22 09:52 01/12/22 09:56 01/12/22 10:02 Temperature Temperature Source Pulse Rate 58 L 56 L 66 Respiratory Rate 24 H 18 27 H Blood Pressure 162/73 H 162/71 H 130/74 H Blood Pressure Mean 102 101 92 Pulse Ox 97 95 96 Oxygen Delivery Method Room Air Room Air Room Air 01/12/22 10:07 01/12/22 10:11 Temperature Temperature Source Pulse Rate 62 59 L Respiratory Rate 23 H Blood Pressure 130/74 H 135/58 H Blood Pressure Mean 92 83 Pulse Ox 97 Oxygen Delivery Method Room Air Positive well nourished and well developed General Appearance ED: well developed and NAD HEENT Reports moist mucous membranes normocephalic and atraumatic Eyes PERRL and EOMs intact bilaterally Neck full ROM and supple Resp normal respiratory effort and clear to auscultation bilaterally Cardio regular rate, regular rhythm and no murmurs GI non-tender and non-distended Auscultation: normoactive bowel sounds Palpation: soft Back/Spine no CVA tenderness General Back: other FROM Extremity normal to inspection General Extremety ED: Negative for edema, pulses abnormal or tenderness General Extremity: Negative for edema or pulses abnormal Neuro no sensory deficits noted Jordan Coma Scale: document GCS findings Spontaneous Obeys Commands Oriented 15 Sensorium / Orientation: awake and alert Meningeal Signs: no meningeal signs Motor Exam: strength 5/5 throughout Skin no rashes or lesions noted and no wounds STROKE Vital Signs/Narrative: Vital Signs Temp Pulse Resp BP Pulse Ox 01/12/22 10:11 59 L 135/58 H 01/12/22 10:07 62 23 H 130/74 H 97 01/12/22 10:02 66 27 H 130/74 H 96 01/12/22 09:56 56 L 18 162/71 H 95 01/12/22 09:52 58 L 24 H 162/73 H 97 01/12/22 09:46 53 L 24 H 154/77 H 95 01/12/22 09:45 52 L 22 H 154/77 H 96 01/12/22 09:37 51 L 23 H 169/97 H 95 01/12/22 09:32 52 L 25 H 169/97 H 96 01/12/22 09:22 98.2 F 54 L 20 H 184/102 H 01/12/22 09:16 54 L 20 H 184/102 H NIHSS Initial: 1a Level of Consciousness: 0 1b LOC Questions (Score 2 if aphasic/stupor): 2 1c LOC Commands (Only score 1st attempt): 0 2 Best Gaze (If aphasic, use reflexive mvmts.): 0 3 Visual: 0 4 Facial Palsy: 1 5 Motor Arm Right (UN = amputation/fusion): 0 5 Motor Arm Left: 0 6 Motor Leg Right: 0 6 Motor Leg Left: 0 7 Limb ataxia (Only + if out of proportion): 0 8 Sensory (Aphasia/stupor=0 or 1, coma=2): 0 9 Best Language: 1 10 Dysarthria (mute, coma=2, intubated=UN): 2 11 Extinction and Inattention (only scored if +): 0 Total Score: 6 MDM MDM MDM Narrative Medical decision making narrative: Prehospital stroke team was called, I met the squad in the ambulance bay, after verifying that the patient's airway is stable and she looks relatively well and alert, she was taken directly to CT, the plain imaging obtained initially showed hemorrhage in the left thalamus, so we did not perform CT angiography and brought her right back to the room for further evaluation. Her airway is stable, she is hypertensive, mostly staying in the 160s. She has been treated with hydralazine for that simultaneously after talking with daughter, she prefers to go to [facility] so I discussed with their transfer center to call for air transport, and later with neurosurgery who accepted the patient. Hydralazine being given for blood pressure since she has a heart rate in the low 50s. She is keenly alert, the CT does not show any shift from the midline, although there is some mild mass-effect with this small hemorrhage in the thalamus on the left. On multiple reevaluations, her mental status is excellent and her level of consciousness remained keenly alert. Therefore given the clinical status and the CT findings I do not think she needs to be intubated prior to transfer and the neurosurgeon was in agreement. Lab Data Attestation: I reviewed the patient's lab results. Labs: Laboratory Results - last 24 hr 01/12/22 01/12/22 01/12/22 08:40 08:40 08:40 WBC 8.5 RBC 3.98 L Hgb 12.3 Hct 37.5 MCV 94.2 MCH 30.9 MCHC 32.8 RDW Std Deviation 43.7 RDW Coeff of Alanna 12.6 Plt Count 259 MPV 8.9 Immature Gran % (Auto) 0.600 Neut % (Auto) 69.7 Lymph % (Auto) 20.6 Beauregard % (Auto) 5.4 Eos % (Auto) 3.0 Baso % (Auto) 0.7 Absolute Neuts (auto) 5.9 Absolute Lymphs (auto) 1.74 Nucleated RBC % 0 PT 12.5 INR 1.0 APTT 28.6 Sodium 141 Potassium 3.8 Chloride 106 Carbon Dioxide 32.0 Anion Gap 3 L BUN 19 H Creatinine 1.09 H Estim Creat Clear Calc 27.02 Est GFR (MDRD) Af Amer 61 Est GFR (MDRD) Non-Af 51 L BUN/Creatinine Ratio 17.4 Glucose 146 H Calcium 9.2 Troponin I High Sens 27 Radiography Diagnostic Testing: Clinical Impression(s) from Imaging Studies Brain CT 01/12/22 09:16 IMPRESSION: Acute hematoma in the left thalamus with surrounding edema and mild mass effect. N.B. : The above Results were Read Back by Abraham March MD to Devante Zelaya and understanding confirmed on 01/12/2022 09:32:07 (ET). Electronically Signed: Abraham March MD at 9:33 EDT , ADDENDUM: 01/12/2240 IMPRESSION: Acute hematoma in the left thalamus with surrounding edema and mild mass effect. N.B. : The above Results were Read Back by Abraham March MD to Devante eZlaya and understanding confirmed on 01/12/2022 09:32:07 (ET). Electronically Signed: Abraham March MD at 9:33 EDT , Chest X-Ray 01/12/22 09:16 IMPRESSION: Left lower lobe infiltrate and small left pleural effusion. 1.2 cm x 1 cm nodule in the right mid lung. Electronically Signed: Abraham March MD at 10:20 EDT , Rhythm Strip Rhythm Strip: Sinus bradycardia Rate: 54 Ectopy: None EKG Initial EKG: Attestation: I personally reviewed and interpreted this EKG as follows: Interpretation: No Acute Injury Pattern, Sinus Bradycardia and Non- Specific ST Changes (T wave flattening lateral precordial) Stroke Documentation Questions Stroke Team Activated: Yes (Prehospital) Was Patient considered for Endovascular Intervention?: No-CTA not indicated IV Alteplase (t-PA) Administered: No (Due to hemorrhage) Critical Care Time Critical Care Time: Yes Critical care time (excluding procedures): 30-74 minutes (40 min), Including time spent:, Discussing w/Patient &/or Family/Chief Legal Officer, Discussing w/Consultants, Arranging Admission or Transfer and Performing Direct Patient Care at Bedside Discharge Plan Triage Chief Complaint: Neuro S/Sx ED Provider: Devante Zelaya Dx/Rx/DC Orders Clinical Impression: Nontraumatic thalamic hemorrhage Prescriptions: No Action metoprolol succinate 25 mg tablet extended release 24 hr 12.5 mg PO BID RF: 0 trazodone 50 mg tablet 25 mg PO QHS RF: 0 cholecalciferol (vitamin D3) 125 mcg (5,000 unit) capsule 125 mcg PO DAILY RF: 0 citalopram [Celexa] 10 mg tablet 10 mg PO DAILY RF: 0 simvastatin 10 mg tablet 10 mg PO QHS RF: 0 aspirin 325 mg tablet 325 mg PO DAILY RF: 0 Primary Care Provider: Hesham Souza Referrals: Hesham Souza MD [Primary Care Provider] - Disposition Disposition: Acute Care Hospital Discharge Location: [facility] Discharge Date/Time: 01/12/22 10:29
--- NOTE | 2022-01-12 09:20 | NURSING ---
912 STROKE ALERT CALLED
[2022-01-12 09:27] LABS: Absolute Lymphocyte Count 1.74 X10^3/uL (0.83-4.51); Absolute Neutrophil Count 5.9 X10^3/uL (2.0-7.7); Basophil# 0.06 X10^3/uL; Basophil% 0.7 % (0-1); Eosinophil# 0.25 X10^3/uL; Hematocrit 37.5 % (37-47); Hemoglobin 12.3 g/dL (12.0-15.0); Lymphocyte # 1.74 X10^3/ul (0.83-4.51); Lymphocyte % 20.6 % (19-41); Mean Corp Hgb Conc 32.8 g/dL (32-36); Mean Corpuscular Hgb 30.9 pg (27.0-32.0); Mean Corpuscular Volume 94.2 fL (81-99); Mean Platelet Vol. 8.9 fl (6.2-12.0); Monocyte# 0.46 X10^3/uL; Monocyte% 5.4 % (0-10); NRBC Flagged by Analyzer 0 % (0-5); Neutrophil % 69.7 % (47-70); Platelet Count 259 K/mm3 (150-450); RBC Distribution Width CV 12.6 % (11.6-14.6); RBC Distribution Width SD 43.7 fl (35.1-43.9); Red Blood Count 3.98 M/mm3 (4.2-5.4); White Blood Count 8.5 K/mm3 (4.4-11.0)
--- NOTE | 2022-01-12 09:30 | NURSING ---
FACESHEET FAXED TO [facility]
--- NOTE | 2022-01-12 09:34 | NURSING ---
CALLED [facility] TRANSFER LINE. TALKED TO DUYEN. SHE IS TALKING TO DR BORGES
[2022-01-12 09:38] LABS: Partial Thromboplast Time 28.6 Seconds (24.1-36.2); Prothrombin Time (Protime)PT. 12.5 SECONDS (11.7-14.9)
[2022-01-12] MEDS: hydrALAZINE 20 MG/ML Vial IV ×2 (09:38→09:50)
--- NOTE | 2022-01-12 09:41 | NURSING ---
[facility] TRANSFER ETA IS 33 MIN
[2022-01-12 09:48] LABS: Anion Gap 3 (5-15); BUN 19 mg/dL (7-18); BUN/Creat Ratio 17.4 RATIO (10-20); Calcium,Total 9.2 mg/dL (8.5-10.1); Chloride 106 mmol/L (98-107); Creatinine, Serum 1.09 mg/dL (0.55-1.02); EST Glomerular Filtration Rate 51 mL/min (>60); Est Glom Filt Rate - Afr Amer 61 mL/min (>60); Estimated Creatinine Clearance 27.02 ml/min; Glucose 146 mg/dL (74-106); Potassium 3.8 mmol/L (3.5-5.1); Sodium Level 141 mmol/L (136-145); Troponin-I HS 27 pg/mL (3.0-54.0)
--- NOTE | 2022-01-12 10:08 | ED.RN ---
[facility] AT BEDSIDE.
--- NOTE | 2022-01-12 10:10 | ED.RN ---
AT THIS TIME, WE DO NOT HAVE A ROOM/UNIT TO CALL REPORT TO, [facility] DOES NOT HAVE THE INFOR EITHER AND IS AWARE WE DO NOT HAVE THE INFO TO CALL REPORT.
--- NOTE | 2022-01-12 10:16 | ED.RN ---
1015 PT LEFT DEPARTMENT. AT THIS TIME WE STILL DO NOT HAVE INFO TO CALL REPORT. DAUGHTER THANKED STAFF FOR WORKING SO CALMLY AND EFFICIENTLY, IT DIDNT GO UNNOTICED.
--- NOTE | 2022-01-12 10:24 | NURSING ---
G 20 BED 14 NURSE TO NURSE [phone]
--- NOTE | 2022-01-12 10:25 | ED.RN ---
ON HOLD WITH G20 TO GIVE REPORT.
--- NOTE | 2022-01-12 10:29 | ED.RN ---
REPORT GIVEN TO [facility]
== END 2022-01-12 10:29 | disposition short-term general hospital (02) ==
PROVIDERS: Emergency Provider Emergency Medicine; PCP Internal Medicine; Visit Provider Emergency Medicine
DX: I61.0 Nontraumatic intracerebral hemorrhage in hemisphere, subcortical (principal); N18.30 Chronic kidney disease, stage 3 unspecified; I12.9 Hypertensive chronic kidney disease with stage 1 through stage 4 chronic kidney disease, or unspecified chronic kidney disease; E78.5 Hyperlipidemia, unspecified; R47.81 Slurred speech; R47.01 Aphasia; Z79.82 Long term (current) use of aspirin; Z79.899 Other long term (current) drug therapy; Z86.73 Personal history of transient ischemic attack (TIA), and cerebral infarction without residual deficits
CPT/HCPCS: 70450; 71045; 80048; 84484; 85025; 85610; 85730; 93005; 96374; 99285; A4216

== ENCOUNTER → 2022-01-25 | Outpatient (REF) | payer SELFPAY ==
[2022-01-25 08:38] LABS: Hematocrit 30.6 % (37-47); Hemoglobin 10.3 g/dL (12.0-15.0); Mean Corp Hgb Conc 33.7 g/dL (32-36); Mean Corpuscular Hgb 31.1 pg (27.0-32.0); Mean Corpuscular Volume 92.4 fL (81-99); Mean Platelet Vol. 9.3 fl (6.2-12.0); Platelet Count 300 K/mm3 (150-450); RBC Distribution Width CV 12.9 % (11.6-14.6); RBC Distribution Width SD 44.1 fl (35.1-43.9); Red Blood Count 3.31 M/mm3 (4.2-5.4); White Blood Count 7.4 K/mm3 (4.4-11.0)
[2022-01-25 08:50] LABS: Anion Gap 6 (5-15); BUN 26 mg/dL (7-18); BUN/Creat Ratio 24.8 RATIO (10-20); Calcium,Total 8.6 mg/dL (8.5-10.1); Chloride 106 mmol/L (98-107); Creatinine, Serum 1.05 mg/dL (0.55-1.02); EST Glomerular Filtration Rate 53 mL/min (>60); Est Glom Filt Rate - Afr Amer 64 mL/min (>60); Glucose 101 mg/dL (74-106); Potassium 3.5 mmol/L (3.5-5.1); Sodium Level 139 mmol/L (136-145)
== END | disposition home or self-care (01) ==
LOC: OLS.WHLTCC 05:00
PROVIDERS: PCP Internal Medicine; Visit Provider Family Medicine
DX: N18.30 Chronic kidney disease, stage 3 unspecified (principal); I69.05 Hemiplegia and hemiparesis following nontraumatic subarachnoid hemorrhage; I61.8 Other nontraumatic intracerebral hemorrhage; I69.120 Aphasia following nontraumatic intracerebral hemorrhage
CPT/HCPCS: 36415; 80048; 85027

== ENCOUNTER → 2022-02-01 | Outpatient (REF) | payer SELFPAY ==
[2022-02-01 08:15] LABS: Hematocrit 31.6 % (37-47); Hemoglobin 10.4 g/dL (12.0-15.0); Mean Corp Hgb Conc 32.9 g/dL (32-36); Mean Corpuscular Hgb 31.2 pg (27.0-32.0); Mean Corpuscular Volume 94.9 fL (81-99); Platelet Count 287 K/mm3 (150-450); RBC Distribution Width CV 12.9 % (11.6-14.6); RBC Distribution Width SD 44.5 fl (35.1-43.9); Red Blood Count 3.33 M/mm3 (4.2-5.4); White Blood Count 7.5 K/mm3 (4.4-11.0)
[2022-02-01 08:32] LABS: Anion Gap 6 (5-15); BUN 27 mg/dL (7-18); BUN/Creat Ratio 26.7 RATIO (10-20); Calcium,Total 8.6 mg/dL (8.5-10.1); Chloride 106 mmol/L (98-107); Creatinine, Serum 1.01 mg/dL (0.55-1.02); EST Glomerular Filtration Rate 55 mL/min (>60); Est Glom Filt Rate - Afr Amer 67 mL/min (>60); Glucose 90 mg/dL (74-106); Potassium 4.3 mmol/L (3.5-5.1); Sodium Level 140 mmol/L (136-145)
== END | disposition home or self-care (01) ==
LOC: OLS.WHLTCC 05:00
PROVIDERS: PCP Internal Medicine; Visit Provider Family Medicine
DX: N18.30 Chronic kidney disease, stage 3 unspecified (principal); I69.05 Hemiplegia and hemiparesis following nontraumatic subarachnoid hemorrhage; I61.9 Nontraumatic intracerebral hemorrhage, unspecified; I69.120 Aphasia following nontraumatic intracerebral hemorrhage
CPT/HCPCS: 36415; 80048; 85027